=== PATIENT | female | born 1945 | race Native Hawaiian/Other Pacific Islander ===

== ENCOUNTER 2016-11-15 11:49 | Inpatient (IN) | payer MEDICARE ==
[2016-11-15 13:36] LABS: Bacteria,Urine 1+ /HPF (Negative); Bilirubin,Urine NEG (Negative); Blood,Urine NEG (Negative); Ketones,Urine 20 mg/dL (Negative); Leukocyte Esterase,Urine MOD (Negative); Mucus,Urine 3+ /HPF; Nitrite,Urine NEG (Negative); Urobilinogen,Urine < 2.0 mg/dL (<2.0)
[2016-11-15 15:54] LABS: Anion Gap 17 mmol/L; BUN/Creatinine Ratio 31.66; Blood Urea Nitrogen 19 mg/dL (7-17); Calcium 9.4 mg/dL (8.4-10.2); Carbon Dioxide 25 mmol/L (22-30); Glucose 99 mg/dL (65-100); Potassium 4.2 mmol/L (3.6-5.0); Sodium 138 mmol/L (137-145)
[2016-11-15 15:58] LABS: Alanine Aminotransferase 12 units/L (7-56); Albumin 4.6 g/dL (3.9-5); Albumin/Globulin Ratio 1.8 %; Alkaline Phosphatase 45 units/L (35-129); Bilirubin,Total 0.4 mg/dL (0.1-1.2); Creatine Kinase 50 units/L (30-135); Total Protein 7.2 g/dL (6.3-8.2)
[2016-11-15 15:59] LABS: Basophils % (Auto) 0.2 % (0.0-1.8); Eosinophils % (Auto) 0.6 % (0.0-4.3); Hematocrit 23.6 % (30.3-42.9); Mean Corpuscular HGB Conc 34 % (30-34); Mean Corpuscular Hemoglobin 35 pg (28-32); Mean Corpuscular Volume 102 fl (79-97); Platelet Count 150 K/mm3 (140-440); Red Blood Count 2.31 M/mm3 (3.65-5.03); Red Cell Distribution Width 17.7 % (13.2-15.2); White Blood Count 3.5 K/mm3 (4.5-11.0)
[2016-11-15 16:02] LABS: Bilirubin,Direct < 0.2 mg/dL (0-0.2); Bilirubin,Indirect 0.2 mg/dL
--- NOTE | 2016-11-15 19:02 | Emergency Department Report ---
- General Chief complaint: Weakness Stated complaint: WEAK Time Seen by Provider: 11/15/16 18:13 Source: patient, EMS Mode of arrival: Ambulatory Limitations: Physical Limitation - History of Present Illness Initial comments: 70-year-old female with a past medical history diabetes and Mnire's disease since the hospital complaining of bilateral lower extremity weakness progressively worsening over the last 2 weeks. Patient states that 2 weeks ago patient was able to walk for about 15 minutes at a time but then will have to sit down to rest because both her legs felt weak. Now patient is unable to walk without being supported as of today. Patient saw PMD Dr. Huang any yesterday for same symptoms. He ordered blood work and suggested workup for lupus. Patient came here due to worsening weakness. No complaints of leg pain , urinary incontinence, back pain, melena, nausea, vomiting, or fever. Patient does states she does have chronic hemorrhoids does note blood from time to time with wiping. - Related Data Home Medications Medication Instructions Recorded Confirmed Last Taken No Known Home Medications [No 11/15/16 11/15/16 Unknown Reported Home Medications] Allergies Allergy/AdvReac Type Severity Reaction Status Date / Time No Known Allergies Allergy Unverified 11/15/16 12:02 ED Review of Systems ROS: Stated complaint: WEAK Other details as noted in HPI Comment: All other systems reviewed and negative Other: Constitutional: No fevers chills Eyes: No eye pain visual changes ENT: No ear pain or throat pain Neck: Denies pain Respiratory: Denies cough wheezing shortness of breath Cardiovascular: Denies chest pain, palpitations, syncope GI: Denies abdominal pain, nausea, vomiting, diarrhea : Denies dysuria, urinary frequency, or urgency Musculoskeletal: Denies back pain Skin: Denies rash, lesions, erythema Neurologic: Denies headache, numbness Psychiatric: Denies suicidal ideation, hallucinations ED Past Medical Hx - Past Medical History Previous Medical History?: Yes Hx Diabetes: Yes Additional medical history: Meniere's disease - Surgical History Past Surgical History?: Yes Additional Surgical History: x 3 - Social History Smoking Status: Never Smoker Substance Use Type: Prescribed - Medications Home Medications: Home Medications Medication Instructions Recorded Confirmed Last Taken Type No Known Home Medications [No 11/15/16 11/15/16 Unknown History Reported Home Medications] ED Physical Exam - General Limitations: Physical Limitation - Other Other exam information: General: No limitations, patient is alert in no acute distress Head exam: Atraumatic, normocephalic Eyes exam: Normal appearance ENT: Moist mucous membrane, normal oropharynx Neck exam: Normal inspection, full range of motion, nontender Respiratory exam: Clear to auscultation bilateral, no wheezes, rales, crackles Cardiovascular: Normal rate and rhythm, normal heart sounds Abdomen: Soft, nondistended, and nontender, with normal bowel sounds, no rebound, or guarding Rectal: Guaiac negative brown stool positive external hemorrhoids without active bleeding Extremity: Full range of motion normal inspection no deformity Back: Normal Inspection, full range of motion, no tenderness Neurologic: Alert, oriented x3, cranial nerves intact, 5/5 upper extremity strength. 3/5 lower extremity strength equal bilaterally. Patient is able to lift off the bed against gravity but unable to sustain. Sensation grossly intact. 2+ patellar reflexes bilaterally. 2+ DP pulses bilaterally Psychiatric: normal affect, normal mood Skin: Warm, dry, intact ED Course Vital Signs 11/15/16 11/15/16 11:56 19:36 Temperature 97.8 F Pulse Rate 75 Respiratory 18 18 Rate Blood Pressure 157/59 O2 Sat by Pulse 100 100 Oximetry - Reevaluation(s) Reevaluation #1: 11/15/16 19:40 pt stable ED Medical Decision Making - Lab Data Result diagrams: 11/15/16 15:15 11/15/16 15:15 Lab Results 11/15/16 11/15/16 11/15/16 Range/Units 13:04 15:15 15:15 WBC 3.5 L (4.5-11.0) K/mm3 RBC 2.31 L (3.65-5.03) M/mm3 Hgb 8.0 L (10.1-14.3) gm/dl Hct 23.6 L (30.3-42.9) % MCV 102 H (79-97) fl MCH 35 H (28-32) pg MCHC 34 (30-34) % RDW 17.7 H (13.2-15.2) % Plt Count 150 (140-440) K/mm3 Lymph % (Auto) 49.9 H (13.4-35.0) % [place] % (Auto) 1.1 (0.0-7.3) % Eos % (Auto) 0.6 (0.0-4.3) % Baso % (Auto) 0.2 (0.0-1.8) % Lymph # 1.7 (1.2-5.4) K/mm3 [place] # 0.0 (0.0-0.8) K/mm3 Eos # 0.0 (0.0-0.4) K/mm3 Baso # 0.0 (0.0-0.1) K/mm3 Seg Neutrophils % 48.2 (40.0-70.0) % Seg Neutrophils # 1.7 L (1.8-7.7) K/mm3 Sodium 138 (137-145) mmol/L Potassium 4.2 (3.6-5.0) mmol/L Chloride 100.0 (98-107) mmol/L Carbon Dioxide 25 (22-30) mmol/L Anion Gap 17 mmol/L BUN 19 H (7-17) mg/dL Creatinine 0.6 L (0.7-1.2) mg/dL Estimated GFR > 60 ml/min BUN/Creatinine Ratio 31.66 % Glucose 99 (65-100) mg/dL Calcium 9.4 (8.4-10.2) mg/dL Total Bilirubin (0.1-1.2) mg/dL Direct Bilirubin (0-0.2) mg/dL Indirect Bilirubin mg/dL AST (5-40) units/L ALT (7-56) units/L Alkaline Phosphatase (35-129) units/L Total Creatine Kinase (30-135) units/L Troponin T (0.00-0.029) ng/mL Total Protein (6.3-8.2) g/dL Albumin (3.9-5) g/dL Albumin/Globulin Ratio % Urine Color Yellow (Yellow) Urine Turbidity Clear (Clear) Urine pH 7.0 (5.0-7.0) Ur Specific [place] 1.020 (1.003-1.030) Urine Protein 30 mg/dl (Negative) mg/dL Urine Glucose (UA) Neg (Negative) mg/dL Urine Ketones 20 (Negative) mg/dL Urine Blood Neg (Negative) Urine Nitrite Neg (Negative) Urine Bilirubin Neg (Negative) Urine Urobilinogen < 2.0 (<2.0) mg/dL Ur Leukocyte Esterase Mod (Negative) Urine WBC (Auto) 12.0 H (0.0-6.0) /HPF Urine RBC (Auto) 5.0 (0.0-6.0) /HPF U Epithel Cells (Auto) 6.0 (0-13.0) /HPF Urine Bacteria (Auto) 1+ (Negative) /HPF Urine Mucus 3+ /HPF 11/15/16 Range/Units 15:15 WBC (4.5-11.0) K/mm3 RBC (3.65-5.03) M/mm3 Hgb (10.1-14.3) gm/dl Hct (30.3-42.9) % MCV (79-97) fl MCH (28-32) pg MCHC (30-34) % RDW (13.2-15.2) % Plt Count (140-440) K/mm3 Lymph % (Auto) (13.4-35.0) % [place] % (Auto) (0.0-7.3) % Eos % (Auto) (0.0-4.3) % Baso % (Auto) (0.0-1.8) % Lymph # (1.2-5.4) K/mm3 [place] # (0.0-0.8) K/mm3 Eos # (0.0-0.4) K/mm3 Baso # (0.0-0.1) K/mm3 Seg Neutrophils % (40.0-70.0) % Seg Neutrophils # (1.8-7.7) K/mm3 Sodium (137-145) mmol/L Potassium (3.6-5.0) mmol/L Chloride (98-107) mmol/L Carbon Dioxide (22-30) mmol/L Anion Gap mmol/L BUN (7-17) mg/dL Creatinine (0.7-1.2) mg/dL Estimated GFR ml/min BUN/Creatinine Ratio % Glucose (65-100) mg/dL Calcium (8.4-10.2) mg/dL Total Bilirubin 0.4 (0.1-1.2) mg/dL Direct Bilirubin < 0.2 (0-0.2) mg/dL Indirect Bilirubin 0.2 mg/dL AST 18 (5-40) units/L ALT 12 (7-56) units/L Alkaline Phosphatase 45 (35-129) units/L Total Creatine Kinase 50 (30-135) units/L Troponin T < 0.010 (0.00-0.029) ng/mL Total Protein 7.2 (6.3-8.2) g/dL Albumin 4.6 (3.9-5) g/dL Albumin/Globulin Ratio 1.8 % Urine Color (Yellow) Urine Turbidity (Clear) Urine pH (5.0-7.0) Ur Specific [place] (1.003-1.030) Urine Protein (Negative) mg/dL Urine Glucose (UA) (Negative) mg/dL Urine Ketones (Negative) mg/dL Urine Blood (Negative) Urine Nitrite (Negative) Urine Bilirubin (Negative) Urine Urobilinogen (<2.0) mg/dL Ur Leukocyte Esterase (Negative) Urine WBC (Auto) (0.0-6.0) /HPF Urine RBC (Auto) (0.0-6.0) /HPF U Epithel Cells (Auto) (0-13.0) /HPF Urine Bacteria (Auto) (Negative) /HPF Urine Mucus /HPF - EKG Data -: EKG Interpreted by Me (sinus rhythm rate 80 septal infarct age indeterminate) - Medical Decision Making Cause of bilateral lower extremity weakness unknown at this time. Patient be admitted to the hospitalist service for further workup and evaluation. Patient does have a mild urinary leukocytosis. Culture and Rocephin had been ordered. Patient is also anemic without signs of acute bleeding and states no recent history of anemia to her knowledge. Patient has a increased MCV. Iron studies will be ordered although patient has macrocytic anemia. Thyroid function tests also ordered and urine culture pending - Differential Diagnosis spinal stenosis, infection, UTI, thyroid disease, neuropathy, Critical Care Time: No Critical care attestation.: If time is entered above; I have spent that time in minutes in the direct care of this critically ill patient, excluding procedure time. ED Disposition Clinical Impression: Bilateral leg weakness, Anemia, Urine WBC increased Disposition: OP ADMITTED IP TO THIS HOSP Is pt being admited?: Yes Condition: Stable Referrals: FAY HARRISON MD [Primary Care Provider] - 3-5 Days Time of Disposition: 19:02 (DR [facility])
[2016-11-15] MEDS ORDERED: ROCEPHIN/NS 1 GM/50 ML 1 GM/50 ML BAG IV ONE (19:32)
--- NOTE | 2016-11-15 19:43 | History and Physical Report ---
History of Present Illness Chief complaint: I feel weak, and I can hardly walk History of present illness: 70 YO Female with DM, Meniere's Disease, Obesity, Metabolic Syndrome presents to ED for evaluation. Pt states that she has experienced weakness over the past month, but worsening over the past 2 weeks. Pt states that she is unable to walk without assistance. Pt denies fever, chills, CP, Palpitations, NVD, recent ill contacts. Patient saw PMD Dr. Huang any yesterday for same symptoms. He ordered blood work and suggested workup for lupus. Patient came here due to worsening weakness. Past History Past Medical History: diabetes Past Surgical History: No surgical history, Other (reviewed) Social history: , lives with family. denies: smoking, alcohol abuse, prescription drug abuse Family history: diabetes, hypertension Medications and Allergies Allergies Allergy/AdvReac Type Severity Reaction Status Date / Time No Known Allergies Allergy Unverified 11/15/16 12:02 Home Medications Medication Instructions Recorded Confirmed Last Taken Type No Known Home Medications [No 11/15/16 11/15/16 Unknown History Reported Home Medications] Active Meds: Active Medications Ceftriaxone Sodium (Rocephin/Ns 1 Gm/50 Ml) 1 gm in 50 mls @ 100 mls/hr IV ONCE ONE Stop: 11/15/16 20:01 Review of Systems All systems: negative Constitutional: weakness Exam - Constitutional Vitals: Temp Pulse Resp BP Pulse Ox 97.8 F 75 18 157/59 100 11/15/16 11:56 11/15/16 11:56 11/15/16 19:36 11/15/16 11:56 11/15/16 19:36 General appearance: Present: mild distress, well-nourished - EENT Eyes: Present: PERRL ENT: hearing intact, clear oral mucosa - Neck Neck: Present: supple, normal ROM - Respiratory Respiratory effort: normal Respiratory: bilateral: CTA - Cardiovascular Heart Sounds: Present: S1 & S2. Absent: rub, click - Extremities Extremities: pulses symmetrical, No edema Peripheral Pulses: within normal limits - Abdominal General gastrointestinal: Present: soft, non-tender, non-distended, normal bowel sounds Female genitourinary: Present: normal - Integumentary Integumentary: Present: clear, warm, dry - Musculoskeletal Musculoskeletal: generalized weakness, other (2/5 BUE/BLE) - Psychiatric Psychiatric: appropriate mood/affect, intact judgment & insight - Neurologic Neurologic: CNII-XII intact, moves all extremities, no gait normal Results - Labs CBC & Chem 7: 11/15/16 15:15 11/15/16 15:15 Labs: Abnormal lab results 11/15/16 11/15/16 11/15/16 Range/Units 13:04 15:15 15:15 WBC 3.5 L (4.5-11.0) K/mm3 RBC 2.31 L (3.65-5.03) M/mm3 Hgb 8.0 L (10.1-14.3) gm/dl Hct 23.6 L (30.3-42.9) % MCV 102 H (79-97) fl MCH 35 H (28-32) pg RDW 17.7 H (13.2-15.2) % Lymph % (Auto) 49.9 H (13.4-35.0) % Seg Neutrophils # 1.7 L (1.8-7.7) K/mm3 BUN 19 H (7-17) mg/dL Creatinine 0.6 L (0.7-1.2) mg/dL Urine WBC (Auto) 12.0 H (0.0-6.0) /HPF Assessment and Plan - Patient Problems (1) Acute inflammatory demyelinating polyneuropathy Current Visit: Yes Status: Acute Plan to address problem: MRI Cervical, thoracic, and Lumbar Spine, Steroids, neuro checks, supportive care, (2) UTI (urinary tract infection) Current Visit: Yes Status: Acute Qualifiers: Urinary tract infection type: U Hematuria presence: H Indwelling urinary catheter type: I Encounter type: E Plan to address problem: IV abx, IVF, supportive care, monitor uop q shift (3) Debility Current Visit: Yes Status: Acute Plan to address problem: PT consulted, (4) Diabetes Current Visit: Yes Status: Acute Qualifiers: Diabetes mellitus type: D Diabetes mellitus complication status: D Diabetes mellitus complication detail: D Diabetic retinopathy severity: D Proliferative retinopathy type: P Diabetes mellitus macular edema: D Diabetes mellitus snf insulin use: D Laterality: L Chronic kidney disease stage: C Plan to address problem: ADA diet, insulin, accu check (5) Metabolic syndrome Current Visit: Yes Status: Acute Plan to address problem: lipid panel, Pt counseled regarding balanced diet, increased physical activity (6) DVT prophylaxis Current Visit: Yes Status: Acute
[2016-11-15] MEDS ORDERED: TYLENOL PO PRN (19:44)
[2016-11-15] MEDS ORDERED: DUONEB 0.5 MG-3 MG/3 ML SOLN IH ONE (20:29)
[2016-11-15] MEDS: DUONEB 0.5 MG-3 MG/3 ML SOLN IH SCH ×2 (20:38→21:44)
[2016-11-15 21:02] LABS: Total Iron Binding Capacity 379.4 mcg/dL (250-450)
[2016-11-15] MEDS: NACL 0.45% 1000 ML 1,000 ML IV SCH (21:11)
[2016-11-16] MEDS: DUONEB 0.5 MG-3 MG/3 ML SOLN IH SCH ×3 (01:13→17:05)
[2016-11-16 09:00] LABS: Hematocrit 22.2 % (30.3-42.9); Hemoglobin 7.7 gm/dl (10.1-14.3)
[2016-11-16] MEDS ORDERED: LOVENOX SUB-Q SCH ×2 (10:00)
--- NOTE | 2016-11-16 13:11 | Progress Note ---
Assessment and Plan Assessment and plan: 70 YO Female with DM, Meniere's Disease, Obesity, Metabolic Syndrome presents to ED for evaluation. Pt states that she has experienced weakness over the past month, but worsening over the past 2 weeks. Pt states that she is unable to walk without assistance. She had a fall a week ago due to generalized weakness. No trauma to her back that she noted. Pt denies fever, chills, CP, Palpitations, NVD, recent ill contacts. Patient saw PMD Dr. Huang any yesterday for same symptoms. He ordered blood work with suggestions for workup for lupus. - Patient Problems (1) Acute inflammatory demyelinating polyneuropathy Current Visit: Yes Status: Acute Plan to address problem: MRI Cervical, thoracic, and Lumbar Spine, pending continue Steroids, neuro checks, supportive care, along with Dr. Jiang for results of the lupus study. TSH is normal. Patient with no urinary or bowel incontinence (2) UTI (urinary tract infection) Current Visit: Yes Status: Acute Qualifiers: Urinary tract infection type: U Hematuria presence: H Indwelling urinary catheter type: I Encounter type: E Plan to address problem: IV abx, IVF, supportive care, monitor uop q shift (3) Debility Current Visit: Yes Status: Acute Plan to address problem: PT consulted, (4) Diabetes Current Visit: Yes Status: Acute Qualifiers: Diabetes mellitus type: D Diabetes mellitus complication status: D Diabetes mellitus complication detail: D Diabetic retinopathy severity: D Proliferative retinopathy type: P Diabetes mellitus macular edema: D Diabetes mellitus correction insulin use: D Laterality: L Chronic kidney disease stage: C Plan to address problem: ADA diet, insulin, accu check (5) Metabolic syndrome Current Visit: Yes Status: Acute Plan to address problem: lipid panel, Pt counseled regarding balanced diet, increased physical activity (6) DVT prophylaxis Current Visit: Yes Status: Acute History Interval history: Patient seen and examined this morning in no acute distress continues to complain of generalized weakness and decreased sensation in bilateral lower extremities. Hospitalist Physical - Physical exam Narrative exam: VITAL SIGNS: Reviewed. GENERAL: The patient appeared well nourished and normally developed. Vital signs as documented. HEAD: No signs of head trauma. EYES: Pupils are equal. Extraocular motions intact. EARS: Hearing grossly intact. MOUTH: Oropharynx is normal. NECK: No adenopathy, no JVD. CHEST: Chest with clear breath sounds bilaterally. No wheezes, rales, or rhonchi. CARDIAC: Regular rate and rhythm. S1 and S2, without murmurs, gallops, or rubs. VASCULAR: No Edema. Peripheral pulses normal and equal in all extremities. ABDOMEN: Soft, without detectable tenderness. No sign of distention. No rebound or guarding, and no masses palpated. Bowel Sounds normal. MUSCULOSKELETAL: Good range of motion of all major joints. Extremities without clubbing, cyanosis or edema. NEUROLOGIC EXAM: Alert and oriented x 3. 3 over 5 motor strength bilateral lower extremity. Speech normal. Follows commands. PSYCHIATRIC: Mood normal. SKIN: No rash or lesions. - Constitutional Vitals: Temp Pulse Resp BP Pulse Ox 98.1 F 70 16 130/60 97 11/16/16 07:50 11/16/16 07:50 11/16/16 07:50 11/16/16 07:50 11/16/16 07:50 General appearance: Present: mild distress, well-nourished Results - Labs CBC & Chem 7: 11/16/16 08:24 11/15/16 15:15 Labs: Laboratory Last Values WBC 3.5 K/mm3 (4.5-11.0) L 11/15/16 15:15 RBC 2.31 M/mm3 (3.65-5.03) L 11/15/16 15:15 Hgb 7.7 gm/dl (10.1-14.3) L 11/16/16 08:24 Hct 22.2 % (30.3-42.9) L 11/16/16 08:24 MCV 102 fl (79-97) H 11/15/16 15:15 MCH 35 pg (28-32) H 11/15/16 15:15 MCHC 34 % (30-34) 11/15/16 15:15 RDW 17.7 % (13.2-15.2) H 11/15/16 15:15 Plt Count 150 K/mm3 (140-440) 11/15/16 15:15 Lymph % (Auto) 49.9 % (13.4-35.0) H 11/15/16 15:15 [place] % (Auto) 1.1 % (0.0-7.3) 11/15/16 15:15 Eos % (Auto) 0.6 % (0.0-4.3) 11/15/16 15:15 Baso % (Auto) 0.2 % (0.0-1.8) 11/15/16 15:15 Lymph # 1.7 K/mm3 (1.2-5.4) 11/15/16 15:15 [place] # 0.0 K/mm3 (0.0-0.8) 11/15/16 15:15 Eos # 0.0 K/mm3 (0.0-0.4) 11/15/16 15:15 Baso # 0.0 K/mm3 (0.0-0.1) 11/15/16 15:15 Seg Neutrophils % 48.2 % (40.0-70.0) 11/15/16 15:15 Seg Neutrophils # 1.7 K/mm3 (1.8-7.7) L 11/15/16 15:15 Sodium 138 mmol/L (137-145) 11/15/16 15:15 Potassium 4.2 mmol/L (3.6-5.0) 11/15/16 15:15 Chloride 100.0 mmol/L (98-107) 11/15/16 15:15 Carbon Dioxide 25 mmol/L (22-30) 11/15/16 15:15 Anion Gap 17 mmol/L 11/15/16 15:15 BUN 19 mg/dL (7-17) H 11/15/16 15:15 Creatinine 0.6 mg/dL (0.7-1.2) L 11/15/16 15:15 Estimated GFR > 60 ml/min 11/15/16 15:15 BUN/Creatinine Ratio 31.66 % 11/15/16 15:15 Glucose 99 mg/dL (65-100) 11/15/16 15:15 Calcium 9.4 mg/dL (8.4-10.2) 11/15/16 15:15 Iron 196 ug/dL (37-170) H 11/16/16 08:24 TIBC 350.00 mcg/dL (250-450) 11/16/16 08:24 % Saturation 56.00 % 11/16/16 08:24 Transferrin 250 mg/dl (192-382) 11/16/16 08:24 Total Bilirubin 0.4 mg/dL (0.1-1.2) 11/15/16 15:15 Direct Bilirubin < 0.2 mg/dL (0-0.2) 11/15/16 15:15 Indirect Bilirubin 0.2 mg/dL 11/15/16 15:15 AST 18 units/L (5-40) 11/15/16 15:15 ALT 12 units/L (7-56) 11/15/16 15:15 Alkaline Phosphatase 45 units/L (35-129) 11/15/16 15:15 Total Creatine Kinase 50 units/L (30-135) 11/15/16 15:15 Troponin T < 0.010 ng/mL (0.00-0.029) 11/15/16 15:15 Total Protein 7.2 g/dL (6.3-8.2) 11/15/16 15:15 Albumin 4.6 g/dL (3.9-5) 11/15/16 15:15 Albumin/Globulin Ratio 1.8 % 11/15/16 15:15 Triglycerides 197 mg/dL (2-149) H 11/15/16 15:15 Cholesterol 213 mg/dL (50-199) H 11/15/16 15:15 LDL Cholesterol Direct 128 mg/dL (50-130) 11/15/16 15:15 HDL Cholesterol 46 mg/dL (40-59) 11/15/16 15:15 Cholesterol/HDL Ratio 4.63 % 11/15/16 15:15 TSH 3.450 mlU/mL (0.270-4.200) 11/15/16 21:15 Free T4 1.09 ng/dL (0.76-1.46) 11/15/16 21:15 Urine Color Yellow (Yellow) 11/15/16 13:04 Urine Turbidity Clear (Clear) 11/15/16 13:04 Urine pH 7.0 (5.0-7.0) 11/15/16 13:04 Ur Specific [place] 1.020 (1.003-1.030) 11/15/16 13:04 Urine Protein 30 mg/dl mg/dL (Negative) 11/15/16 13:04 Urine Glucose (UA) Neg mg/dL (Negative) 11/15/16 13:04 Urine Ketones 20 mg/dL (Negative) 11/15/16 13:04 Urine Blood Neg (Negative) 11/15/16 13:04 Urine Nitrite Neg (Negative) 11/15/16 13:04 Urine Bilirubin Neg (Negative) 11/15/16 13:04 Urine Urobilinogen < 2.0 mg/dL (<2.0) 11/15/16 13:04 Ur Leukocyte Esterase Mod (Negative) 11/15/16 13:04 Urine WBC (Auto) 12.0 /HPF (0.0-6.0) H 11/15/16 13:04 Urine RBC (Auto) 5.0 /HPF (0.0-6.0) 11/15/16 13:04 U Epithel Cells (Auto) 6.0 /HPF (0-13.0) 11/15/16 13:04 Urine Bacteria (Auto) 1+ /HPF (Negative) 11/15/16 13:04 Urine Mucus 3+ /HPF 11/15/16 13:04 - Imaging and Cardiology MRI - head: pending
[2016-11-16] MEDS ORDERED: D50W (25GM) IV PRN (14:08)
--- NOTE | 2016-11-16 15:24 | Magnetic Resonance Report ---
FINAL REPORT EXAM: MR BRAIN WO/W CON HISTORY: weakness TECHNIQUE: MRI brain without and with gadolinium PRIORS: None. FINDINGS: Diffusion-weighted imaging shows no acute infarct. Moderate atrophy. Extensive patchy areas of increased signal in the periventricular and subcortical white matter is nonspecific, but is compatible with chronic small vessel ischemic change. No acute hemorrhage. No mass effect or midline shift. Major intracranial flow voids are visualized. No abnormal enhancement seen. IMPRESSION: 1. Suspect extensive chronic small vessel ischemic changes.
--- NOTE | 2016-11-16 15:30 | Magnetic Resonance Report ---
FINAL REPORT EXAM: MR CERVICAL SPINE WO/W CON HISTORY: weakness TECHNIQUE: Routine MRI of the cervical spine without and with gadolinium. PRIORS: None. FINDINGS: It is not possible technically to confirm image levels between the sagittal and axial images. Normal vertebral body alignment. No significant abnormality seen within the vertebral body marrow. Cervical cord appears normal in contour and signal intensity. Normal vertebral artery flow voids bilaterally. C2-C3: There is no disc protrusion, central nor foraminal stenosis. C3-C4: There is no disc protrusion, central nor foraminal stenosis. C4-C5: There is no disc protrusion, central nor foraminal stenosis. C5-C6: Uncovertebral joint spurring and minor endplate spurring. No foraminal stenosis. C6-C7: There is no disc protrusion, central nor foraminal stenosis. Mild uncovertebral joint spurring. C7-T1: There is no disc protrusion, central nor foraminal stenosis. No abnormal enhancement or mass identified after contrast administration. IMPRESSION: 1. Mild degenerative changes.
--- NOTE | 2016-11-16 15:52 | Magnetic Resonance Report ---
FINAL REPORT PROCEDURE: MR THORACIC SPINE WO/W CON TECHNIQUE: Magnetic resonance imaging of the thoracic spine was performed using standard pulse sequences before and after the IV injection of paramagnetic contrast. CPT 19830 HISTORY: weakness COMPARISON: No prior studies are available for comparison. FINDINGS: No thoracic compression fracture is seen. Benign hemangioma are seen at T4, T5 and T6. No abnormal T2 signal is seen in the thoracic cord. There is mild left paracentral disc bulge at T11-12 causing no significant stenosis. Contrast-enhanced images reveal no evidence of discitis or osteomyelitis. There is no abnormal enhancement of the thoracic cord. IMPRESSION: Mild disc bulge at T11-12 causes no significant stenosis.
--- NOTE | 2016-11-16 15:59 | Magnetic Resonance Report ---
FINAL REPORT PROCEDURE: MR LUMBAR SPINE WO/W CON TECHNIQUE: Magnetic resonance imaging of the lumbar spine was performed using standard pulse sequences before and after the IV injection of paramagnetic contrast. CPT 98674 HISTORY: weakness COMPARISON: No prior studies are available for comparison. FINDINGS: The conus terminates at the L1 level. Mild disc bulge is seen at T11-12. No lumbar compression fracture is seen. No abnormal bony signal is seen. No spondylolisthesis is identified L1-2: No significant abnormality . L2-3: No significant abnormality . L3-4: No significant abnormality . L4-5: Disc bulge is seen diffusely with mild central disc protrusion. Mild posterior element hypertrophy is seen with facet arthropathy. Moderate central canal and lateral recess stenosis is seen. Thecal sac effacement is seen without compression. No nerve root compression is seen. L5-S1: Uncovertebral osteophytes cause moderate neural foraminal stenosis without nerve root compression. Mild central canal and lateral recess stenosis is seen. Other: Contrast-enhanced images reveal no evidence of discitis or osteomyelitis. No abnormal enhancement is seen of the conus or filum terminale. Enhancing annular tear is suspected centrally at L5-S1 and there is expected enhancement of the disc protrusion at L4-5. IMPRESSION: Small central disc protrusion at L4-5 and posterior element hypertrophy cause thecal sac effacement without compression. Bony changes at L5-S1 cause moderate neural foraminal narrowing.
[2016-11-16] MEDS: NACL 0.45% 1000 ML 1,000 ML IV SCH (16:35)
[2016-11-16] MEDS: NOVOLOG SUB-Q SCH ×2 (16:41→23:36)
[2016-11-16] MEDS ORDERED: PROVENTIL IH PRN (20:00)
[2016-11-17] MEDS: NACL 0.45% 1000 ML 1,000 ML IV SCH (05:44)
[2016-11-17] MEDS: NOVOLOG SUB-Q SCH (07:36)
[2016-11-17 09:35] VITALS: BP 105/52
--- NOTE | 2016-11-17 10:00 | Admit Criteria Form ---
Admission Criteria Documentation: NEUROLOGY GRG Clinical Indications for Admission to Inpatient Care (Place ' X' for any and all applicable criteria): Hospital admission is needed for appropriate care of the patient because of ANY ONE of the following: [ ]I. New-onset or worsening altered mental status remaining after emergency or observation level care (as appropriate) (9)(10)(11) [ ]II. Severe [employer] infections or inflammatory conditions, including ANY ONE of the following(1)(2)(3): [ ]a) Intracranial abscess [ ]b) Spinal abscess or myelitis [ ]c) Tuberculous or other nonbacterial, nonviral [employer] infection(8) [ ]III. Encephalitis(1)(2)(3) [ ]IV. Status epilepticus or repetitive seizures not controlled with emergent treatment [A] (7)(8) [ ]V. Transient alteration in consciousness with high-risk etiology; examples include (12)(13): [ ]a) Cardiovascular source [ ]b) Cataplexy [ ]. Cerebral aneurysm requiring ANY ONE of the following(14): [ ]a) IV antihypertensives or vasoactive agents [ ]b) Sedation and analgesia for suspected leak [ ]c) Need for external ventricular drainage and cerebral perfusion pressure monitoring [ ]d) Emergent evaluation to determine need for surgical clipping or endovascular coiling by interventional radiology. If surgery is required ( Also use Craniotomy, Supratentorial, for Surgery of Bleeding Intracranial Aneurysm (for bleeding aneurysm) or Craniotomy, Supratentorial (for nonbleeding aneurysm) as appropriate. [ ]VII. Altered mental status that is severe or persistent(16) [ ]VIII New-onset severe neurologic findings requiring inpatient care; examples include: [ ]a) Papilledema [ ]b) Cerebral edema [ ]c) Mass effect on imaging [X]IX. New-onset severe neurologic symptom requiring inpatient care indicated by ANY ONE of the following: [ ]a) Aphasia(15) [X]b) Weakness (grade 3 or less) [ ]c) Paralysis (eg, hemiplegia) [ ]d) Spasticity(16) [ ]e) Ataxia(17) [ ]f) Amnesia(18) [ ]g) Involuntary movements(19) [ ]h) Vertigo [ ]i) Other severe neurologic symptom not treatable at alternative level of care (eg, observation care) [ ]X. Guillain-Orchard syndrome(20) [ ]XI. Myasthenia gravis crisis or inpatient monitoring need as indicated by ANY ONE of the following(21): [ ]a) Inadequate airway protection [ ]b) Respiratory insufficiency requiring intubation or inpatient. monitoring [ ]c) Progressive dysphagia with failure to thrive [ ]d) Intensive treatment (eg, course of plasmapheresis) with inadequate outpatient situation to monitor patients status [ ]XII. Multiple sclerosis or other acute demyelinating disease requiring inpatient care as indicated by ANY ONE of the following (22)(23): [ ]a) Acute severe deterioration requiring inpatient treatment (eg, IV steroids, plasmapheresis, close observation) [ ]b) Acute complication requiring inpatient care (eg, sepsis, severe decubitus, aspiration) [ ]XIII. Intracranial hypertension (eg, pseudotumor cerebri) requiring inpatient care (eg, acute visual loss, inadequate oral intake) (24) [ ]XIV.Parkinson disease requiring inpatient care (Also use Optimal Recovery Care Criteria or General Recovery Criteria as appropriate) indicated by ANY ONE of the following(25): [ ]a) Infection (eg, aspiration pneumonia) not treatable at alternative level of care [ ]b) Volume depletion not responsive to emergency and observation care treatment (as appropriate) [ ]c) Life-threatening agitation or psychotic behavior not treatable on emergency, observation care, or alternative level (eg, residential) basis [ ]d) Severe medication withdrawal effects (eg, freezing, neuroleptic malignant syndrome) not responsive to emergency and observation care treatment (as appropriate) [ ]e) Other severe manifestation not treatable at alternative level of care [ ]XV.Amyotrophic lateral sclerosis with inpatient care needs as indicated by ANY ONE of the following(26): [ ]a) Acute complications requiring inpatient care (Use Optimal Recovery Care Criteria or General Recovery Criteria as appropriate); examples include: [ ]i) Aspiration pneumonia [ ]ii) Sepsis [ ]b) Dehydration or hypovolemia (not responsive to emergency and observation care treatment as appropriate) AND artificial support desired [ ]c) Inadequate airway protection AND artificial support desired [ ]d) Severe ventilatory insufficiency AND artificial support desired [ ]XVI.Severe myopathy, neuropathy, or other neuromuscular disease as indicated by ANY ONE of the following: [ ]a) New-onset severe diffuse weakness (eg, strength 3/5 or less) [ ]b) Severe dysphagia [ ]c) Dyspnea at rest or with minimal exertion (new) [ ]d) Inadequate airway protection [ ]e) Inadequate ventilation as indicated by ANY ONE of the following : [ ]i) Partial pressure of carbon dioxide greater than 44 mm Hg (5.9 kPa) (new) [ ]ii) Reduced peak expiratory flow rate (new) [ ]iii) Vital capacity less than 50% of predicted ( less than 15 mL/kg) [ ]iv) Peak inspiratory force less negative than -30 cm H20 (-2942 Pa) [ ]XVII.Complications of congenital or degenerative disease (eg, infection, seizures, dehydration, injury) not responsive to emergency and observation care treatment (as appropriate ) [C](16)(29)(30) [ ]XVIII.Suspected or confirmed nerve or muscle toxic injury, including ANY ONE of the following: [ ]a) Rhabdomyolysis(31) [ ]b) Botulism(32) [ ]c) Other severe toxin-induced sign or symptom [ ]XIX. Neurologic trauma requiring inpatient treatment (medical) indicated by ANY ONE of the following(33)(34): [ ]a) Vital signs or neurologic signs more frequently than every 4 hours [ ]b) Hyperosmolar therapy [ ]c) Respiratory monitoring [ ]d) Intracranial pressure monitoring and treatment [ ]e) Stabilization and immobilization device placement (eg, braces, body jacket) [ ]f) Intubation & mechanical ventilation for airway protection or therapeutic hyperventilation [ ]g) Other treatment or monitoring needed that requires inpatient level of care [ ]XX.Complications of neurologic devices (eg, ventricular shunt, neurostimulator) requiring ANY ONE of the following(35)(36): [ ]a) IV antibiotics with monitoring while awaiting culture results [ ]b) Monitoring for hydrocephalus [ ]XXI Vasculitis with ANY ONE of the following(4)(5): [ ]a) Altered mental status [ ]b) Psychosis [ ]c) Seizures [ ]XXII. Neurology condition and ALL of the following: [ ]a) Symptom or finding for which emergency and observation care have failed or are not considered appropriate (Use General Criteria: Observation Care as appropriate) [ ]b) Presence of ANY ONE of the following: [ ]i) A General Admission Criteria [ ]ii A Pediatric General Admission Criteria The original [facility] content created by [facility] has been revised. The portions of the content which have been revised are identified through the use of italic text or in bold, and [facility] has neither reviewed nor approved the modified material. All other unmodified content is copyright [facility] Please see references footnoted in the original [facility] edition 2016 Admission Criteria Met: Yes
--- NOTE | 2016-11-17 10:12 | Discharge Summary ---
Providers - Providers Date of Admission: 11/15/16 19:44 Date of discharge: 11/17/16 Attending physician: LEIGH DEVLIN MD 11/15/16 20:11 Physical Therapy Evaluation and Treat [CONS] Routine Comment: Reason For Exam: weakness Primary care physician: FAY HARRISON Hospitalization Reason for admission: generalized bilateral lower extremity weakness Condition: Stable Hospital course: 70 YO Female with DM, Meniere's Disease, Obesity, Metabolic Syndrome presents to ED for evaluation. Pt states that she has experienced weakness over the past month, but worsening over the past 2 weeks. Pt states that she is unable to walk without assistance. Pt denies fever, chills, CP, Palpitations, NVD, recent ill contacts. Patient saw PMD Dr. Huang any yesterday for same symptoms. He ordered blood work and suggested workup for lupus. Patient came here due to worsening weakness. She symptoms did improve slightly she is ambulating at this point. With assistance of a walker. She does note improvement she denies any pain. She still has some numbness of bilateral lower extremity but improved compared to on admission. Imaging studies have been reviewed with her except for a small central disc protrusion at L4 to L5 and posterior element hypertrophy of thecal sac effacement without compression and also somebody changes at L5 to S1 causing moderte neural foraminal narrowing no other acute pathologies noted of the lumbosacral spine. Images of the brain chronic small vessel ischemic changes. Like to start the patient will start therapy but I think a rheumatological workup is to be ruled out first to rule out myositis. Recommended [id number] small dose aspirin she verbalized understanding. I 'll follow up with primary care physician. Home health was set up for discharge. No urinary or bowel incontinence were noted. Patient denied any symptomatology of urinary tract infection received antibiotics the ER but I have discontinued this. - Patient Problems (1) Acute inflammatory demyelinating polyneuropathy (2) UTI (urinary tract infection) (3) Debility (4) Diabetes (5) Metabolic syndrome Disposition: DC/TX HOME UNDER HOME HEALTH Time spent for discharge: 35 mins Core Measure Documentation - Palliative Care Palliative Care/ Comfort Measures: Not Applicable - Core Measures Any of the following diagnoses?: none - VTE Discharge Requirements Deep Vein Thrombosis/Pulmonary Embolism Present on Admission: No Exam - Physical Exam Narrative exam: VITAL SIGNS: Reviewed. GENERAL: The patient appeared well nourished and normally developed. Vital signs as documented. HEAD: No signs of head trauma. EYES: Pupils are equal. Extraocular motions intact. EARS: Hearing grossly intact. MOUTH: Oropharynx is normal. NECK: No adenopathy, no JVD. CHEST: Chest with clear breath sounds bilaterally. No wheezes, rales, or rhonchi. CARDIAC: Regular rate and rhythm. S1 and S2, without murmurs, gallops, or rubs. VASCULAR: No Edema. Peripheral pulses normal and equal in all extremities. ABDOMEN: Soft, without detectable tenderness. No sign of distention. No rebound or guarding, and no masses palpated. Bowel Sounds normal. MUSCULOSKELETAL: Good range of motion of all major joints. Extremities without clubbing, cyanosis or edema. NEUROLOGIC EXAM: Alert and oriented x 3. 3 over 5 motor strength bilateral lower extremity. Speech normal. Follows commands. PSYCHIATRIC: Mood normal. SKIN: No rash or lesions. - Constitutional Vitals: Temp Pulse Resp BP Pulse Ox 98.0 F 64 22 105/52 98 11/17/16 08:00 11/17/16 08:00 11/17/16 08:00 11/17/16 08:00 11/17/16 08:00 Plan Activity: advance as tolerated, fall precautions Diet: low fat Special Instructions: physical therapy, occupational therapy Additional Instructions: Recommend eval by [facility] outpatient to be arranged by PCP Follow up with: FAY HARRISON MD [Primary Care Provider] - 3-5 Days Prescriptions: predniSONE [Deltasone] 10 mg PO .TAPER #48 tab
== END 2016-11-17 11:15 | disposition home health service (06) | DRG 95 ==
LOC: ED 11:49 → 3A 19:44
PROVIDERS: ADMIT Internal Medicine; ATTEND Internal Medicine
DX: G61.0 Guillain-Barre syndrome (principal); N39.0 Urinary tract infection, site not specified; E11.42 Type 2 diabetes mellitus with diabetic polyneuropathy; E88.81 Metabolic syndrome and other insulin resistance; R54 Age-related physical debility; H81.09 Meniere's disease, unspecified ear; D64.9 Anemia, unspecified; E66.9 Obesity, unspecified; Z68.31 Body mass index [BMI] 31.0-31.9, adult; Z83.3 Family history of diabetes mellitus; Z82.49 Family history of ischemic heart disease and other diseases of the circulatory system
CPT/HCPCS: 36415; 70553; 72156; 72157; 72158; 80048; 80061; 80074; 81001; 82271; 82550; 82962; 83550; 84439; 84443; 84484; 85014; 85018; 85025; 87086; 93005; 93010; 94640; 96374; 96375; A9577; J0696; J1650; J1815; J2920

== ENCOUNTER 2016-11-22 19:15 | Inpatient (IN) | payer MEDICARE ==
[2016-11-22 20:38] LABS: Hematocrit 22.5 % (30.3-42.9); Hemoglobin 7.6 gm/dl (10.1-14.3); Mean Corpuscular HGB Conc 34 % (30-34); Mean Corpuscular Hemoglobin 36 pg (28-32); Mean Corpuscular Volume 106 fl (79-97); Platelet Count 143 K/mm3 (140-440); Red Blood Count 2.12 M/mm3 (3.65-5.03); Red Cell Distribution Width 17.4 % (13.2-15.2); White Blood Count 7.1 K/mm3 (4.5-11.0)
[2016-11-22 20:43] LABS: Anion Gap 20 mmol/L; Blood Urea Nitrogen 21 mg/dL (7-17); Calcium 9.3 mg/dL (8.4-10.2); Carbon Dioxide 23 mmol/L (22-30); Chloride 98.1 mmol/L (98-107); Glucose 101 mg/dL (65-100); Potassium 3.2 mmol/L (3.6-5.0); Sodium 138 mmol/L (137-145)
[2016-11-22 21:10] LABS: Basophils % (Manual) 0 % (0.0-1.8); Blastocytes % (Manual) 0 %; Eosinophils % (Manual) 0 % (0.0-4.3); Total Cells Counted Percent 0
[2016-11-22 21:17] LABS: Anisocytosis 1+
[2016-11-22 21:18] LABS: Hypochromasia 1+; Macrocytosis 1+; Ovalocytes 1+; Poikilocytosis Few; Tear Drop Cells Few
[2016-11-22 21:19] LABS: Diff Status Complete; Platelet Estimate Consistent w Auto
--- NOTE | 2016-11-23 02:42 | Emergency Department Report ---
ED Neuro Deficit HPI - General Chief Complaint: Neuro Symptoms/Deficit Stated Complaint: DIONNA, NUMBNESS IN LEGS Time Seen by Provider: 11/23/16 02:38 Source: patient Mode of arrival: Ambulatory Limitations: No Limitations - History of Present Illness Initial Comments: This is a 70-year-old female who has been frustrated with progressive weakness of her lower extremities over the past several weeks. She was actually admitted to the hospital one week ago for similar. She had MRI done of her CT and L-spine as well as of her brain. He did not demonstrate anything acute as the etiology. She progresses and continued having increased weakness of her lower extremities. She states it is very difficult to perform her normal activities due to the profound weakness in her legs. She was given referral for our rheumatology as well as for GI for her anemia. His appointments were made but they are not for over the next couple of weeks. Patient feels she cannot wait that long for evaluation. Patient was set up as well for physical therapy but due to weather and doctor visits she has not been able to connect with him yet. She denies any specific source of bleeding. No hematochezia or rectal bleeding no vaginal bleeding is reported states that she is eating and drinking well. Does report fatigue and general that she attributes to her anemia. Denies weight change. - Related Data Home Medications: Previous Rx's Medication Instructions Recorded Last Taken Type predniSONE [Deltasone] 10 mg PO .TAPER #48 tab 11/17/16 Unknown Rx Allergies/Adverse Reactions: Allergies Allergy/AdvReac Type Severity Reaction Status Date / Time No Known Allergies Allergy Unverified 11/15/16 12:02 ED Review of Systems ROS: Stated complaint: DIONNA, NUMBNESS IN LEGS Other details as noted in HPI Comment: All other systems reviewed and negative Constitutional: weakness. denies: chills, fever Eyes: denies: eye pain, eye discharge, vision change ENT: denies: ear pain, throat pain Respiratory: denies: cough, shortness of breath, wheezing Cardiovascular: denies: chest pain, palpitations Endocrine: no symptoms reported Gastrointestinal: denies: abdominal pain, nausea, diarrhea Genitourinary: denies: urgency, dysuria, discharge Musculoskeletal: other (weakness of the bilateral lower extremities). denies: back pain, joint swelling, arthralgia Skin: denies: rash, lesions Neurological: denies: headache, weakness, paresthesias Psychiatric: denies: anxiety, depression Hematological/Lymphatic: denies: easy bleeding, easy bruising ED Past Medical Hx - Past Medical History Hx Diabetes: Yes Additional medical history: Meniere's disease, Anemia - Surgical History Additional Surgical History: x 3 - Social History Smoking Status: Never Smoker Substance Use Type: None - Medications Home Medications: Home Medications Medication Instructions Recorded Confirmed Last Taken Type predniSONE [Deltasone] 10 mg PO .TAPER #48 tab 11/17/16 Unknown Rx ED Neuro Physical Exam - General Limitations: No Limitations General appearance: alert, in no apparent distress Suspected Stroke: No - Head Head exam: Present: atraumatic, normocephalic - Eye Eye exam: Present: normal appearance, EOMI. Absent: scleral icterus - ENT ENT exam: Present: normal exam, normal orophraynx, mucous membranes moist - Neck Neck exam: Present: normal inspection, full ROM. Absent: tenderness, lymphadenopathy - Respiratory Respiratory exam: Present: normal lung sounds bilaterally. Absent: respiratory distress, wheezes, rales - Cardiovascular Cardiovascular Exam: Present: regular rate, normal rhythm. Absent: systolic murmur, diastolic murmur, rubs, gallop - GI/Abdominal GI/Abdominal exam: Present: soft, normal bowel sounds. Absent: tenderness, guarding - Extremities Exam Extremities exam: Present: normal inspection, pedal edema (trace bilaterally. Good distal pedal pulses noted bilaterally.), other (noted to be weak bilaterally. She is able to move her legs spontaneously and able to shuffle along the ground.). Absent: calf tenderness - Back Exam Back exam: Present: normal inspection. Absent: CVA tenderness (R), CVA tenderness (L), muscle spasm - Neurological Exam Neurological exam: Present: alert, oriented X3 - Psychiatric Psychiatric exam: Present: normal affect, normal mood - Skin Skin exam: Present: warm, dry, intact, normal color. Absent: rash ED Course Vital Signs 11/22/16 11/23/16 11/23/16 19:46 02:45 03:09 Temperature 98.3 F Pulse Rate 72 68 Respiratory 18 14 18 Rate Blood Pressure 161/54 151/45 Blood Pressure 161/54 [Left] O2 Sat by Pulse 100 100 98 Oximetry - Reevaluation(s) Reevaluation #1: 11/23/16 04:38 This patient clearly objectively has some weakness of the lower extremities. His appears to be equal bilaterally. I do anticipate there is some type of pathology that will be identified. It is not clear to me at this time. I agree with possibility of myositis versus other rheumatologic conditions. Structurally nothing specific was noted on the x-rays and went to give a etiology for her complaint. Patient very interested in staying in the hospital. I did indicate that oftentimes his workup was done as an outpatient but she just doesn't feel like she is safe at home as she is having such a difficult time moving around. She is also concerned that she may need blood due to her ongoing fatigue. He did indicate to her that her anemia appears to be chronic in nature as she is very well compensated. I did express the patient 's concerns to Dr. Gibson from the hospitalist service. She was kind enough to evaluate the patient and willing to admit her for continued care. I believe the plan and anticipation is to have neurology involvement as well as further lab tests to attempt to further delineate the etiology of this patient's weakness. Reevaluation #2: 11/23/16 04:40 Lab tests noted here are unremarkable in general. Patient was noted to have anemia with hemoglobin 7.6. Potassium was slightly low as well. I will hold replacing this at this time however. 11/23/16 04:40 - Lab Data Result diagrams: 11/22/16 20:16 11/22/16 20:16 Lab Results 11/22/16 11/22/16 Range/Units 20:16 20:16 WBC 7.1 (4.5-11.0) K/mm3 RBC 2.12 L (3.65-5.03) M/mm3 Hgb 7.6 L (10.1-14.3) gm/dl Hct 22.5 L (30.3-42.9) % MCV 106 H (79-97) fl MCH 36 H (28-32) pg MCHC 34 (30-34) % RDW 17.4 H (13.2-15.2) % Plt Count 143 (140-440) K/mm3 Lymph % (Auto) [facility] Lymph # [facility] Add Manual Diff Complete Total Counted 100 Seg Neutrophils % [facility] Seg Neuts % (Manual) 19.0 L (40.0-70.0) % Band Neutrophils % 5.0 % Lymphocytes % (Manual) 76.0 H (13.4-35.0) % Reactive Lymphs % (Man) 0 % Monocytes % (Manual) 0 (0.0-7.3) % Eosinophils % (Manual) 0 (0.0-4.3) % Basophils % (Manual) 0 (0.0-1.8) % Metamyelocytes % 0 % Myelocytes % 0 % Promyelocytes % 0 % Blast Cells % 0 % Nucleated RBC % Not Reportable Seg Neutrophils # Man 1.3 L (1.8-7.7) K/mm3 Band Neutrophils # 0.4 K/mm3 Lymphocytes # (Manual) 5.4 (1.2-5.4) K/mm3 Abs React Lymphs (Man) 0.0 K/mm3 Monocytes # (Manual) 0.0 (0.0-0.8) K/mm3 Eosinophils # (Manual) 0.0 (0.0-0.4) K/mm3 Basophils # (Manual) 0.0 (0.0-0.1) K/mm3 Metamyelocytes # 0.0 K/mm3 Myelocytes # 0.0 K/mm3 Promyelocytes # 0.0 K/mm3 Blast Cells # 0.0 K/mm3 WBC Morphology Not Reportable Hypersegmented Neuts Not Reportable Hyposegmented Neuts Not Reportable Hypogranular Neuts Not Reportable Smudge Cells Not Reportable Toxic Granulation Not Reportable Toxic Vacuolation Not Reportable Dohle Bodies Not Reportable Pelger-Huet Anomaly Not Reportable [place] Rods Not Reportable Platelet Estimate Consistent w auto Clumped Platelets Not Reportable Plt Clumps, EDTA Not Reportable Large Platelets Not Reportable Giant Platelets Not Reportable Platelet Satelliting Not Reportable Plt Morphology Comment Not Reportable RBC Morphology Not Reportable Dimorphic RBCs Not Reportable Polychromasia Not Reportable Hypochromasia 1+ Poikilocytosis Few Anisocytosis 1+ Microcytosis Not Reportable Macrocytosis 1+ Spherocytes Not Reportable Pappenheimer Bodies Not Reportable Sickle Cells Not Reportable Target Cells Not Reportable Tear Drop Cells Few Ovalocytes 1+ Helmet Cells Not Reportable [place] Bodies Not Reportable [place] Rings Not Reportable [place] Cells Not Reportable Bite Cells Not Reportable Crenated Cell Not Reportable Elliptocytes Not Reportable Acanthocytes (Spur) Not Reportable Rouleaux Not Reportable Hemoglobin C Crystals Not Reportable Schistocytes Not Reportable Malaria parasites Not Reportable Aldo Bodies Not Reportable Hem Pathologist Commnt Sent to pathology Sodium 138 (137-145) mmol/L Potassium 3.2 L (3.6-5.0) mmol/L Chloride 98.1 (98-107) mmol/L Carbon Dioxide 23 (22-30) mmol/L Anion Gap 20 mmol/L BUN 21 H (7-17) mg/dL Creatinine 0.6 L (0.7-1.2) mg/dL Estimated GFR > 60 ml/min BUN/Creatinine Ratio 35.00 % Glucose 101 H (65-100) mg/dL Calcium 9.3 (8.4-10.2) mg/dL Critical care attestation.: If time is entered above; I have spent that time in minutes in the direct care of this critically ill patient, excluding procedure time. ED Disposition Clinical Impression: Leg weakness, bilateral Anemia Qualifiers: Anemia type: unspecified type Qualified Code(s): D64.9 - Anemia, unspecified Disposition: OP ADMITTED IP TO THIS HOSP Is pt being admited?: Yes Does the pt Need Aspirin: No Condition: Stable Referrals: FAY HARRISON MD [Primary Care Provider] - 3-5 Days Time of Disposition: 03:53
[2016-11-23] MEDS ORDERED: MILK OF MAGNESIA PO PRN (03:51)
[2016-11-23] MEDS ORDERED: ZOFRAN IV PRN (03:51)
[2016-11-23] MEDS ORDERED: D50W (25GM) IV PRN (03:51)
[2016-11-23] MEDS ORDERED: DULCOLAX PR PRN (03:51)
[2016-11-23] MEDS ORDERED: PERCOCET 5/325 PO PRN (03:51)
[2016-11-23] MEDS ORDERED: TYLENOL PO PRN (03:51)
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
[2016-11-23] MEDS ORDERED: LOVENOX SUB-Q SCH (10:00)
[2016-11-23 10:08] VITALS: BP 127/50
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
== END 2016-11-23 12:15 | disposition home or self-care (01) | DRG 96 ==
LOC: ED 19:15 → CC2 11-23 03:51
PROVIDERS: ADMIT Internal Medicine; ATTEND Internal Medicine
DX: G61.0 Guillain-Barre syndrome (principal); M62.81 Muscle weakness (generalized); D69.6 Thrombocytopenia, unspecified; D50.9 Iron deficiency anemia, unspecified; E88.81 Metabolic syndrome and other insulin resistance; Z83.3 Family history of diabetes mellitus; I10 Essential (primary) hypertension; Z82.49 Family history of ischemic heart disease and other diseases of the circulatory system; E11.9 Type 2 diabetes mellitus without complications
CPT/HCPCS: 36415; 80048; 82607; 82747; 82962; 85007; 85025; 93005; 93010; 99285

== ENCOUNTER 2017-10-28 10:03 | Outpatient (CLI) | payer MEDICARE, OTHER ==
--- NOTE | 2017-10-30 16:56 | Vascular Lab Report ---
RIGHT UPPER EXTREMITY VENOUS DUPLEX: REASON FOR EXAM: Pain and swelling of the right upper extremity COMMENTS ON THE RIGHT: All arm veins visualized are freely compressible without evidence of internal echogenicity. The subclavian and internal jugular veins are free of thrombus. Flow is spontaneous and phasic throughout. COMMENTS ON THE LEFT: A limited study of the jugular and subclavian veins shows no evidence of thrombus. IMPRESSION: No evidence of acute or chronic deep venous thrombosis in the right upper extremity.
== END 2017-10-28 10:04 | disposition home or self-care (01) ==
LOC: VAS 10:03
PROVIDERS: ATTEND Internal Medicine Hematology & Oncology
DX: M79.601 Pain in right arm (principal); M79.89 Other specified soft tissue disorders; D75.89 Other specified diseases of blood and blood-forming organs; D64.9 Anemia, unspecified; C91.00 Acute lymphoblastic leukemia not having achieved remission

== ENCOUNTER 2018-03-17 15:22 | Emergency (ER) | payer OTHER ==
--- NOTE | 2018-03-17 16:39 | Emergency Department Report ---
HPI - General Chief Complaint: Weakness Time Seen by Provider: 03/17/18 16:01 - HPI HPI: 75-year-old female with a past medical history of previous Mnire's disease, diet-controlled diabetes, hypertension and leukemia presents to the emergency department with complaint of bilateral lower extremity weakness that is a chronic problem for her but started up again this morning. Patient is currently getting hemotherapy for her leukemia and last had it on Thursday, receiving vincristine. She does have a history of neutropenia secondary to this and says that her normal white blood cell count is about 1.4. She called her oncologist office, Dr. Oquendo, was told to go to the emergency department for further evaluation. She denies any fever, headache, chest pain, shortness of breath. She has not taken anything for her symptoms prior to presentation. The patient walks with a walker or a cane. The patient has had this issue for about 1 year. She denies any numbness, paresthesias, problems with bowel or bladder. ED Past Medical Hx - Past Medical History Hx Hypertension: No Hx Heart Attack/AMI: No Hx Congestive Heart Failure: No Hx Diabetes: Yes (diet control) Hx Deep Vein Thrombosis: No Hx Pulmonary Embolism: No Hx Liver Disease: No Hx Renal Disease: No Hx Sickle Cell Disease: No Hx Arthritis: No Hx Seizures: No Hx Kidney Stones: No Hx Asthma: No Hx COPD: No Hx Tuberculosis: No Hx Dementia: No Hx HIV: No Additional medical history: Meniere's disease, Anemia. Leukemia diagnosed 2016 - Surgical History Hx Coronary Stent: No Hx Open Heart Surgery: No Hx Pacemaker: No Hx Internal Defibrillator: No Hx Cholecystectomy: No Hx Appendectomy: No Hx Breast Surgery: No Additional Surgical History: x 3 - Social History Smoking Status: Never Smoker Substance Use Type: None - Medications Home Medications: Home Medications Medication Instructions Recorded Confirmed Last Taken Type Folic Acid [Folvite] 1 mg PO QDAY 01/27/17 01/27/17 01/26/17 History ED Review of Systems ROS: Stated complaint: LOW BLOOD COUNT Other details as noted in HPI Comment: All other systems reviewed and negative Constitutional: weakness. denies: chills, fever Eyes: denies: eye pain, eye discharge, vision change ENT: denies: ear pain, throat pain Respiratory: denies: cough, shortness of breath, wheezing Cardiovascular: denies: chest pain, palpitations Gastrointestinal: denies: abdominal pain, nausea, diarrhea Genitourinary: denies: urgency, dysuria, discharge Musculoskeletal: denies: back pain, joint swelling, arthralgia Skin: denies: rash, lesions Neurological: weakness. denies: headache Physical Exam - Physical Exam Vital Signs: Vital Signs 03/17/18 15:28 Temperature 97.9 F Pulse Rate 94 H Respiratory 16 Rate Blood Pressure 147/66 O2 Sat by Pulse 100 Oximetry ED Course Vital Signs 03/17/18 15:28 Temperature 97.9 F Pulse Rate 94 H Respiratory 16 Rate Blood Pressure 147/66 O2 Sat by Pulse 100 Oximetry - Consultations Consultation #1: 03/17/18 19:57 I spoke with the oncologist on-call for Dr. Oquendo, Dr. Cantrell, who is familiar with this patient but listen to the case presentation and feels that the patient 's numbers on her blood count sound consistent with the patient's previous numbers and do not warrant inpatient admission based solely on this fact. ED Medical Decision Making - Lab Data Result diagrams: 03/17/18 16:40 03/17/18 16:40 - EKG Data -: EKG Interpreted by Me EKG shows normal: sinus rhythm, axis (left axis deviation), intervals, QRS complexes (Q waves to the septal leads), ST-T waves Rate: normal - EKG Data When compared to previous EKG there are: no significant change Interpretation: unchanged when compared t (11/22/16) - Medical Decision Making Patient presented to the emergency department with a complaint of bilateral lower extremity weakness and saying that she felt that maybe her neutropenia had worsened. Patient's CBC shows a white blood cell count of 1.4 and some signs of overall neutropenia. However the says that her white blood cell count was 1.4 as of 5 days ago. Her hemoglobin is stable at 10.4. There are no significant electrolyte abnormalities, no renal insufficiency or glucose abnormalities. She had a negative troponin and has normal thyroid function. EKG is unchanged from November of last year and does not show any ST elevation ID or dysrhythmia. I spoke with the oncologist who is not concerned about the current numbers of the neutropenia. The patient's weakness has improved throughout her ED course. The patient and her say that this is an issue that she has been dealing with for about a year, if not more, and often her weakness waxes and wanes. She uses either a cane or a walker to ambulate. The patient's Walker was brought into the emergency department and the patient was able to ambulate and says that she feels stable. She says that she feels like she is at her baseline level of strength and walking ability and is asking for discharge home. At no point has she had any complaints of headache, back pain or fever. The patient says that she has had imaging done of her brain and her spine for these issues in the past. The patient will be discharged home to follow up with her primary care physician and her oncologist but she has been instructed to return to the emergency department immediately with any further signs of weakness, inability to ambulate, development of headache or fever, chest pain or shortness of breath, or any acute distress. She understands and agrees to the plan. Critical Care Time: No Critical care attestation.: If time is entered above; I have spent that time in minutes in the direct care of this critically ill patient, excluding procedure time. ED Disposition Clinical Impression: History of leukemia, Weakness Disposition: DC-01 TO HOME OR SELFCARE Is pt being admited?: No Condition: Stable Instructions: Weakness (ED) Additional Instructions: Please follow-up with your primary care physician and your oncologist as soon as possible. Return to the emergency department immediately with any further episodes of weakness, any headache, slurred speech, chest pain, fever or with any acute distress. Referrals: CARMEN OQUENDO MD [Staff Physician] - [facility] Time of Disposition: 20:02
[2018-03-17 17:11] LABS: Hematocrit 29.5 % (30.3-42.9); Hemoglobin 10.4 gm/dl (10.1-14.3); Mean Corpuscular HGB Conc 35 % (30-34); Mean Corpuscular Hemoglobin 34 pg (28-32); Mean Corpuscular Volume 95 fl (79-97); Platelet Count 116 K/mm3 (140-440); Red Cell Distribution Width 18.2 % (13.2-15.2)
[2018-03-17 17:40] LABS: BUN/Creatinine Ratio 40; Blood Urea Nitrogen 12 mg/dL (7-17); Calcium 8.8 mg/dL (8.4-10.2); Hemolysis Index 10
[2018-03-17 17:57] LABS: Basophils % (Manual) 0 % (0.0-1.8); Eosinophils % (Manual) 0 % (0.0-4.3); RBC Morphology Normal; Total Cells Counted 100
[2018-03-17 20:25] VITALS: BP 144/49
== END 2018-03-17 20:34 | disposition home or self-care (01) ==
LOC: ED 15:22
DX: M62.81 Muscle weakness (generalized) (principal); E11.9 Type 2 diabetes mellitus without complications; D64.9 Anemia, unspecified; Z85.6 Personal history of leukemia
CPT/HCPCS: 36415; 80048; 82550; 84443; 84484; 85007; 85025; 93005; 93010